=== PATIENT | female | born 1940 ===

== ENCOUNTER → 2023-09-01 | Outpatient (CLI) | payer OTHER ==
[2023-09-01 15:43] LABS: Source, Urine Voided
[2023-09-01 16:09] LABS: Appearance, Urine Hazy (Clear); Bilirubin, Urine Neg (Neg); Blood, Urine Neg (Neg); Color, Urine Yellow (P-Yellow); Glucose Qualitative, Urine Neg (Neg); Ketones, Urine Neg (Neg); Leukocyte Esterase, Urine 1+ (Neg); Nitrite, Urine Neg (Neg); Protein, Urine Neg (Neg); Specific Gravity, Urine 1.015 (1.003-1.022); Urobilinogen, Urine NORM (Normal)
[2023-09-01 16:20] LABS: Bacteria Mod /hpf; Mucus Light (0-Heavy); Red Blood Cells, Urine 0-2 /hpf (0-2); Squamous Epithelial Cells Rare /hpf (Few); Transitional Epithelial Cells Rare /hpf (0-Rare)
== END ==
LOC: LAB 15:39 → LAB SHORT 15:39
PROVIDERS: Family Medicine
DX: N39.0 Urinary tract infection, site not specified (principal)
CPT/HCPCS: 81001; 87086; 87147

== ENCOUNTER → 2023-11-14 | Outpatient (CLI) | payer OTHER ==
[2023-11-14 11:02] LABS: Source, Urine Clean Catch
[2023-11-14 11:55] LABS: Appearance, Urine Clear (Clear); Bilirubin, Urine Neg (Neg); Blood, Urine Neg (Neg); Color, Urine Yellow (P-Yellow); Glucose Qualitative, Urine Neg (Neg); Ketones, Urine Neg (Neg); Leukocyte Esterase, Urine Neg (Neg); Nitrite, Urine Neg (Neg); Protein, Urine Neg (Neg); Urobilinogen, Urine NORM (Normal)
== END ==
LOC: LAB SHORT 10:58 → LAB 10:58
PROVIDERS: Family Medicine
DX: N39.0 Urinary tract infection, site not specified (principal)
CPT/HCPCS: 81003

== ENCOUNTER → 2023-12-08 | Outpatient (CLI) | payer OTHER ==
[2023-12-08 18:13] LABS: Source, Urine Voided
[2023-12-08 19:39] LABS: Bilirubin, Urine Neg (Neg); Blood, Urine Neg (Neg); Color, Urine Yellow (P-Yellow); Glucose Qualitative, Urine Neg (Neg); Ketones, Urine Neg (Neg); Leukocyte Esterase, Urine 2+ (Neg); Nitrite, Urine Neg (Neg); Protein, Urine 1+ (Neg); Specific Gravity, Urine 1.025 (1.003-1.022); Urobilinogen, Urine NORM (Normal)
[2023-12-08 19:49] LABS: Appearance, Urine Hazy (Clear)
[2023-12-08 19:50] LABS: Bacteria Mod /hpf; Mucus Light (0-Heavy); Red Blood Cells, Urine 0-2 /hpf (0-2); Squamous Epithelial Cells Rare /hpf (Few); Transitional Epithelial Cells Few /hpf (0-Rare)
== END ==
LOC: LAB SHORT 18:11 → LAB 18:11
PROVIDERS: Family Medicine
DX: N39.0 Urinary tract infection, site not specified (principal)
CPT/HCPCS: 81001; 87086

== ENCOUNTER 2023-12-09 16:17 | Emergency (ER) | payer OTHER ==
[2023-12-09] MEDS ORDERED: Mag Hydrox/AL Hydrox/Simeth 30 ML UDC PO ONE (17:45)
[2023-12-09 17:47] LABS: BASOPHILS ABSOLUTE AUTO 0.02 K/mm3 (0.00-0.23); BASOPHILS PERCENT AUTO 0 % (0-2); EOSINOPHILS ABSOLUTE AUTO 0.21 K/mm3 (0.00-0.68); EOSINOPHILS PERCENT AUTO 3 % (0-6); Hematocrit 40.6 % (33.0-51.0); Hemoglobin 13.3 g/dL (11.5-16.0); IMMATURE GRAN ABSOLUTE AUTO 0.04 K/mm3 (0.00-0.10); IMMATURE GRAN PERCENT AUTO 1 % (0-1); LYMPHOCYTES ABSOLUTE AUTO 1.66 K/mm3 (0.84-5.20); LYMPHOCYTES PERCENT AUTO 21 % (21-46); MONOCYTES ABSOLUTE AUTO 0.56 K/mm3 (0.16-1.47); MONOCYTES PERCENT AUTO 7 % (4-13); Mean Corpuscular HGB 30.6 pg (26.0-34.0); Mean Corpuscular HGB Conc 32.8 g/dL (31.5-36.5); Mean Corpuscular Volume 93 fL (80-100); Mean Platelet Volume 10.9 fL (9.1-12.4); NEUTROPHILS ABSOLUTE AUTO 5.53 K/mm3 (1.96-9.15); NEUTROPHILS PERCENT AUTO 69 % (41-73); Platelet Count 231 K/mm3 (150-400); RDW Coefficient Variation 12.9 % (11.7-14.2); RDW Standard Deviation 44.3 fL (35.1-46.3); Red Blood Cell Count 4.35 M/mm3 (3.80-5.20); White Blood Cell Count 8.02 K/mm3 (4.00-11.30)
[2023-12-09 17:51] LABS: Albumin, Blood 2.9 g/dL (3.4-5.0); Albumin/Globulin Ratio 0.9 (0.8-1.8); Bilirubin, Total 0.6 mg/dL (0.1-1.0); Bun/Creatinine Ratio 20.5 (12.0-20.0); Creatinine, Blood 1.17 mg/dL (0.40-1.00); Globulin, Blood 3.3 g/dL (2.2-4.0); Magnesium, Blood 2.1 mg/dL (1.6-2.4); Potassium, Blood 3.9 mmol/L (3.5-5.5); Total Protein, Blood 6.2 g/dL (6.4-8.2)
[2023-12-09] MEDS ORDERED: Acetaminophen 325 MG TABLET PO ONE (18:40)
[2023-12-09 18:46] LABS: Source, Urine Clean Catch
[2023-12-09 18:49] LABS: Appearance, Urine Clear (Clear); Bilirubin, Urine Neg (Neg); Blood, Urine Neg (Neg); Glucose Qualitative, Urine Neg (Neg); Ketones, Urine Neg (Neg); Leukocyte Esterase, Urine 2+ (Neg); Nitrite, Urine Neg (Neg); Protein, Urine Neg (Neg); Urobilinogen, Urine NORM (Normal)
[2023-12-09 18:54] LABS: Color, Urine Pale Yellow (P-Yellow)
[2023-12-09 18:55] LABS: Bacteria Few /hpf; Red Blood Cells, Urine 0-2 /hpf (0-2); Squamous Epithelial Cells Rare /hpf (Few)
[2023-12-09 20:30] VITALS: BP 139/65
== END 2023-12-09 21:03 | disposition home or self-care (01) ==
LOC: ER 16:17
PROVIDERS: Student in an Organized Health Care Education/Training Program
DX: R07.9 Chest pain, unspecified (principal); G89.29 Other chronic pain; F03.90 Unspecified dementia, unspecified severity, without behavioral disturbance, psychotic disturbance, mood disturbance, and anxiety; I10 Essential (primary) hypertension
CPT/HCPCS: 71045; 80053; 81001; 83735; 84484; 85025; 87086; 93005; 93010; 99285-25; A9270

== ENCOUNTER → 2023-12-11 | Outpatient (CLI) | payer OTHER ==
[2023-12-11 15:31] LABS: Source, Urine Voided
[2023-12-11 16:23] LABS: Appearance, Urine Clear (Clear); Bilirubin, Urine Neg (Neg); Blood, Urine Neg (Neg); Color, Urine Yellow (P-Yellow); Glucose Qualitative, Urine Neg (Neg); Ketones, Urine Neg (Neg); Leukocyte Esterase, Urine Neg (Neg); Nitrite, Urine Neg (Neg); Protein, Urine Neg (Neg); Specific Gravity, Urine 1.015 (1.003-1.022); Urobilinogen, Urine NORM (Normal)
== END ==
LOC: LAB SHORT 15:29 → LAB 15:29
PROVIDERS: Family Medicine
DX: N39.0 Urinary tract infection, site not specified (principal)
CPT/HCPCS: 81003

== ENCOUNTER 2024-04-10 22:08 | Emergency (ER) | payer OTHER ==
[~2024-04-10] VITALS: Ht 165.1 cm; Wt 81.7 kg
[2024-04-10 22:53] VITALS: BP 164/92
[2024-04-10] MEDS ORDERED: ESCI10 PO (23:52)
[2024-04-10] MEDS ORDERED: DONEPEZIL HCL10 MG PO (23:52)
[2024-04-10] MEDS ORDERED: MEMA5TAB PO (23:53)
[2024-04-10] MEDS ORDERED: FURO20 PO (23:53)
[2024-04-10] MEDS ORDERED: OLAN5 PO (23:54)
[2024-04-10] MEDS ORDERED: POTA10T PO (23:54)
[2024-04-10] MEDS ORDERED: OMEP20ER PO (23:54)
[2024-04-10] MEDS ORDERED: THERA-D2000 UNIT PO (23:55)
== END 2024-04-11 01:45 | disposition home or self-care (01) ==
LOC: ER 22:08
DX: M25.561 Pain in right knee (principal); I12.9 Hypertensive chronic kidney disease with stage 1 through stage 4 chronic kidney disease, or unspecified chronic kidney disease; N18.9 Chronic kidney disease, unspecified; G47.00 Insomnia, unspecified
CPT/HCPCS: 99283

== ENCOUNTER 2024-04-11 09:47 | Emergency (ER) | payer OTHER ==
[~2024-04-11] VITALS: Ht 167.6 cm; Wt 90.7 kg
[~2024-04-11 09:47] MED LIST: DONEPEZIL HCL10 MG PO; ESCI10 PO; FURO20 PO; MEMA5TAB PO; OLAN5 PO; OMEP20ER PO; POTA10T PO; THERA-D2000 UNIT PO
[2024-04-11 09:51] VITALS: BP 134/69
[2024-04-11] MEDS ORDERED: Acetaminophen 325 MG TABLET PO ONE (11:00)
== END 2024-04-11 11:08 | disposition home or self-care (01) ==
LOC: ER 09:47
DX: S83.91XA Sprain of unspecified site of right knee, initial encounter (principal); I12.9 Hypertensive chronic kidney disease with stage 1 through stage 4 chronic kidney disease, or unspecified chronic kidney disease; N18.9 Chronic kidney disease, unspecified; G47.00 Insomnia, unspecified; W01.0XXA Fall on same level from slipping, tripping and stumbling without subsequent striking against object, initial encounter; Z79.899 Other long term (current) drug therapy
CPT/HCPCS: 73562-RT; 99283-25; A9270

== ENCOUNTER 2024-04-12 18:51 | Emergency (ER) | payer OTHER ==
[~2024-04-12] VITALS: Ht 160 cm; Wt 90.7 kg
[2024-04-12 19:27] VITALS: BP 138/75
== END 2024-04-12 21:34 | disposition home or self-care (01) ==
LOC: ER 18:51
DX: R29.6 Repeated falls (principal); R51.9 Headache, unspecified; F03.90 Unspecified dementia, unspecified severity, without behavioral disturbance, psychotic disturbance, mood disturbance, and anxiety
CPT/HCPCS: 70450; 99283-25

== ENCOUNTER → 2024-11-11 | Outpatient (CLI) | payer OTHER ==
[~2024-11-11] MED LIST changes: +BISA10S PR; +DULCOLAX400 MG/5 M; +LOPE2C; +ONDA4ODT MM
[2024-11-11 17:02] LABS: Source, Urine Clean Catch
[2024-11-11 20:15] LABS: Bilirubin, Urine Neg (Neg); Color, Urine Pale Yellow (P-Yellow); Glucose Qualitative, Urine Neg (Neg); Ketones, Urine Neg (Neg); Leukocyte Esterase, Urine Neg (Neg); Protein, Urine Neg (Neg); Specific Gravity, Urine 1.015 (1.003-1.022); Urobilinogen, Urine NORM (Normal)
== END ==
LOC: LAB 17:00 → LAB SHORT 17:00
PROVIDERS: Family Medicine
DX: N39.0 Urinary tract infection, site not specified (principal)
CPT/HCPCS: 81003